=== PATIENT | male | born 1990 | race Caucasian/White ===

== ENCOUNTER 2016-10-18 11:07 | Emergency (ER) | payer OTHER ==
[~2016-10-18] VITALS: Ht 160 cm; Wt 80.0 kg
[2016-10-18 11:12] VITALS: Ht 160 cm; Wt 80.0 kg
[2016-10-18] MEDS ORDERED: LORAZEPAM 1 MG TAB PO ONE (12:30)
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
[2016-10-18 13:11] VITALS: BP 139/88; PULSE 69; RESP 16; TEMP 99.3
== END 2016-10-18 13:11 | disposition home or self-care (01) ==
LOC: FTE 11:07
DX: F14.90 Cocaine use, unspecified, uncomplicated (principal)
CPT/HCPCS: 93005